=== PATIENT | female | born 1945 | race Caucasian/White ===

== ENCOUNTER 2020-07-31 20:41 | Inpatient (IN) ==
[2020-07-31] MEDS ORDERED: 0.9 % Sodium Chloride 1,000 ML IVC ONE (20:59)
[2020-07-31 21:38] LABS: Basophils % 0.3 %; Immature Granulocytes % 0.3 % (0-4); Mean Platelet Volume 9.9 fL (9.4-12.4)
[2020-07-31 21:39] LABS: White Blood Count 3.6 K/mcL (4.3-11.1)
[2020-07-31 21:40] LABS: Hemoglobin 12.7 g/dL (11.5-15.4); Immature Platelets 2.9 % (1.1-6.1); Lymphocytes # 0.4 K/mcL (0.6-4.6); Lymphocytes % 11.1 %; Mean Corpuscular HGB Conc 33.4 g/dL (31.6-35.5); Mean Corpuscular Volume 95.7 fL (83.0-100.0); Monocytes # 0.2 K/mcL (0.0-1.3); Monocytes % 5.5 %; Red Blood Count 3.97 M/mcL (3.82-4.97); Red Cell Distribution Width 12.7 % (11.5-14.5); Segmented Neutrophils % 82.8 %
[2020-07-31 22:13] LABS: Platelet Count 93 K/mcL (140-400); Platelet Estimate Slight Decrease (Normal)
[2020-07-31 22:22] LABS: Alanine Aminotransferase 43 Units/L (7-52); Albumin 3.8 g/dL (3.5-5.7); Albumin/Globulin Ratio 1.3 (1.1-2.2); Alkaline Phosphatase 53 Units/L (34-104); Aspartate Amino Transferase 68 Units/L (13-39); BUN/Creatinine Ratio 17 (6-26); Bilirubin,Indirect 0.3 mg/dL (0.0-1.0); Bilirubin,Total 0.3 mg/dL (0.3-1.0); Blood Urea Nitrogen 15 mg/dL (8-23); Calcium 8.8 mg/dL (8.6-10.3); Carbon Dioxide 22 mEq/L (23-29); Chloride 100 mEq/L (98-107); Glucose 145 mg/dL (70-105); Lipase 30 Units/L (11-82); Osmolality,Calculated 275 (280-300); Potassium 4.1 mEq/L (3.5-5.1); Sodium 131 mEq/L (136-145); Total Protein 6.8 g/dL (6.4-8.9); Troponin I 0.03 ng/mL (< 0.04); eGFR For African Americans > 60 (> 60); eGFR For Non-African Americans > 60 (> 60)
[2020-07-31 22:52] LABS: Bacteria,Urine Few per hpf (None-Few); Bilirubin,Urine Negative (Negative); Blood,Urine Negative (Negative); Clarity,Urine Turbid (Clear); Color,Urine Yellow (Yellow); Glucose,Urine (UA) Normal (Normal); Ketones,Urine 20 mg/dL (Negative); Leukocyte Esterase,Urine Large (Negative); Mucus,Urine Few per lpf (None-Few); Nitrite,Urine Negative (Negative); Protein,Urine 100 mg/dL (Neg-Trace); RBC,Urine 0-3 per hpf (0-3); Specific Gravity,Urine 1.022 (1.010-1.025); Squamous Epithelial Cell,Urine Few per hpf (None-Few); Urobilinogen,Urine Normal (Normal); WBC,Urine TNTC per hpf (0-3)
[2020-07-31] MEDS ORDERED: cefTRIAXone 1,000 MG in 0.9 % Sodium Chloride Mini Bag 100 ML IVPB ONE ×2 (22:55→22:56)
[2020-07-31] MEDS ORDERED: 0.9 % Sodium Chloride 1,000 ML IVC SCH (23:45)
[2020-07-31] MEDS ORDERED: Naloxone 0.4 MG/ML INJ IVP PRN (23:54)
[2020-07-31] MEDS ORDERED: Ondansetron 4 MG/2 ML VIAL IVP PRN (23:54)
[2020-08-01] MEDS ORDERED: Aspirin Enteric Coated 325 MG Tablet PO ONE (01:06)
[2020-08-01 01:18] LABS: Basophils % 0.3 %; Mean Corpuscular Volume 96.8 fL (83.0-100.0)
[2020-08-01 01:20] LABS: Hematocrit 33.3 % (35.3-44.9); Immature Granulocytes % 0.7 % (0-4); Immature Platelets 3.1 % (1.1-6.1); Lymphocytes # 0.3 K/mcL (0.6-4.6); Lymphocytes % 11.5 %; Mean Platelet Volume 10.5 fL (9.4-12.4); Monocytes # 0.1 K/mcL (0.0-1.3); Monocytes % 3.8 %; Neutrophils # 2.4 K/mcL (1.6-8.9); Red Blood Count 3.44 M/mcL (3.82-4.97); Red Cell Distribution Width 12.9 % (11.5-14.5); Segmented Neutrophils % 83.7 %; White Blood Count 2.9 K/mcL (4.3-11.1)
[2020-08-01 01:27] LABS: BUN/Creatinine Ratio 21 (6-26); Blood Urea Nitrogen 16 mg/dL (8-23); Carbon Dioxide 20 mEq/L (23-29); Chloride 105 mEq/L (98-107); Glucose 132 mg/dL (70-105); INR 1.1; Osmolality,Calculated 279 (280-300); Potassium 3.6 mEq/L (3.5-5.1); Prothrombin Time 12.6 Seconds (9.4-12.1); Sodium 133 mEq/L (136-145); eGFR For African Americans > 60 (> 60); eGFR For Non-African Americans > 60 (> 60)
[2020-08-01 01:29] LABS: Activated Partial Thrombo Time 26.1 Seconds (26.0-36.0)
[2020-08-01 02:25] LABS: Platelet Count 84 K/mcL (140-400)
[2020-08-01 03:21] LABS: Platelet Estimate Decreased (Normal)
[2020-08-01 06:21] LABS: Red Cell Distribution Width 12.9 % (11.5-14.5)
[2020-08-01 06:23] LABS: Hematocrit 33.4 % (35.3-44.9); Hemoglobin 10.9 g/dL (11.5-15.4); Immature Platelets 2.7 % (1.1-6.1); Mean Corpuscular HGB Conc 32.6 g/dL (31.6-35.5); Mean Corpuscular Hemoglobin 31.7 pg (28.0-33.3); Mean Corpuscular Volume 97.1 fL (83.0-100.0); Mean Platelet Volume 10.3 fL (9.4-12.4); Red Blood Count 3.44 M/mcL (3.82-4.97); White Blood Count 2.6 K/mcL (4.3-11.1)
[2020-08-01 06:31] LABS: Platelet Count 71 K/mcL (140-400)
[2020-08-01 06:41] LABS: Chol/HDL Ratio 3.5 (0-4.9)
[2020-08-01 07:11] LABS: Anisocytosis 1+ (Not Present)
[2020-08-01 07:13] LABS: Lymphocytes # 0.2 K/mcL (0.6-4.6); Neutrophils # 2.4 K/mcL (1.6-8.9)
[2020-08-01 07:14] LABS: Platelet Estimate Slight Decrease (Normal); Reactive Lymphocytes Present (Not Present); Toxic Granulation Present (Not Present); Toxic Vacuolation Present (Not Present)
[2020-08-01 08:19] LABS: Estimated Average Glucose 114 mg/dl; Hemoglobin A1C 5.6 %
[2020-08-01] MEDS ORDERED: Isovue-370 500 ML BOTTLE IVP ONE (08:40)
[2020-08-01] MEDS ORDERED: cefTRIAXone 1,000 MG in 0.9 % Sodium Chloride Mini Bag 100 ML IVPB SCH (09:00)
[2020-08-01] MEDS: 0.9 % Sodium Chloride 1,000 ML IVC SCH ×2 (10:05→17:29)
[2020-08-01 10:13] LABS: Hematocrit 34.1 % (35.3-44.9); Hemoglobin 10.9 g/dL (11.5-15.4)
[2020-08-01 10:21] LABS: % Iron Saturation 7 % (15-50); Carbamazepine (Tegretol) 5 mcg/mL (4-12); Iron 14 mcg/dL (50-170); Transferrin 144 mg/dL (203-362)
[2020-08-01 10:39] LABS: Ferritin 1394 ng/mL (10-120)
[2020-08-01] MEDS: Acetaminophen 325 MG TABLET PO PRN ×2 (10:56→18:36)
[2020-08-01] MEDS: Cefepime HCl 1,000 MG in Water for inj. (sterile) 10 ML IVP SCH ×2 (10:57→17:06)
[2020-08-01] MEDS: Gabapentin 400 MG CAPSULE PO SCH ×3 (11:36→21:47)
[2020-08-01] MEDS: Baclofen 10 MG TABLET PO PRN (11:37)
[2020-08-01] MEDS: Doxycycline 100 MG in 0.9 % Sodium Chloride Mini Bag 100 ML IVPB SCH ×2 (13:20→21:47)
[2020-08-01] MEDS: Budesonide/Formoterol 80/4.5 1 PUFF INH IH SCH ×2 (15:51→20:38)
[2020-08-01] MEDS: CarBAMazepine XR (12 hr) 100 MG TAB PO SCH (17:09)
[2020-08-02] MEDS: Cefepime HCl 1,000 MG in Water for inj. (sterile) 10 ML IVP SCH ×3 (01:11→16:39)
[2020-08-02] MEDS: 0.9 % Sodium Chloride 1,000 ML IVC SCH ×3 (01:13→22:17)
[2020-08-02 05:43] LABS: Hemoglobin 11.4 g/dL (11.5-15.4); Mean Corpuscular Hemoglobin 31.8 pg (28.0-33.3); Mean Corpuscular Volume 96.9 fL (83.0-100.0); Mean Platelet Volume 11.1 fL (9.4-12.4); Red Cell Distribution Width 12.9 % (11.5-14.5)
[2020-08-02 05:45] LABS: Hematocrit 34.8 % (35.3-44.9); Immature Platelets 8.8 % (1.1-6.1); Mean Corpuscular HGB Conc 32.8 g/dL (31.6-35.5); Monocytes # 0.1 K/mcL (0.0-1.3); Red Blood Count 3.59 M/mcL (3.82-4.97); White Blood Count 2.2 K/mcL (4.3-11.1)
[2020-08-02 05:54] LABS: Platelet Count 51 K/mcL (140-400)
[2020-08-02] MEDS: Acetaminophen 325 MG TABLET PO PRN (06:00)
[2020-08-02] MEDS: CarBAMazepine XR (12 hr) 100 MG TAB PO SCH ×2 (06:01→16:39)
[2020-08-02 06:09] LABS: Lymphocytes # 0.5 K/mcL (0.6-4.6); Neutrophils # 1.5 K/mcL (1.6-8.9); Platelet Estimate Decreased (Normal); Reactive Lymphocytes Present (Not Present); Toxic Granulation Present (Not Present)
[2020-08-02] MEDS: Budesonide/Formoterol 80/4.5 1 PUFF INH IH SCH ×2 (07:21→20:27)
[2020-08-02] MEDS: Doxycycline 100 MG in 0.9 % Sodium Chloride Mini Bag 100 ML IVPB SCH ×2 (07:35→21:46)
[2020-08-02] MEDS: Gabapentin 400 MG CAPSULE PO SCH ×2 (07:36→08:05)
[2020-08-02 07:42] LABS: Alanine Aminotransferase 121 Units/L (7-52); Albumin 3.3 g/dL (3.5-5.7); Albumin/Globulin Ratio 1.3 (1.1-2.2); Alkaline Phosphatase 65 Units/L (34-104); Aspartate Amino Transferase 210 Units/L (13-39); BUN/Creatinine Ratio 14 (6-26); Bilirubin,Direct 0.1 mg/dL (0.0-0.2); Bilirubin,Indirect 0.3 mg/dL (0.0-1.0); Bilirubin,Total 0.4 mg/dL (0.3-1.0); Blood Urea Nitrogen 12 mg/dL (8-23); Calcium 7.5 mg/dL (8.6-10.3); Carbon Dioxide 22 mEq/L (23-29); Chloride 104 mEq/L (98-107); Globulin 2.6 g/dL (2.4-3.5); Glucose 124 mg/dL (70-105); Magnesium 1.7 mg/dL (1.6-2.6); Osmolality,Calculated 277 (280-300); Phosphorous 1.5 mg/dL (2.7-4.5); Potassium 3.4 mEq/L (3.5-5.1); Sodium 133 mEq/L (136-145); Total Protein 5.9 g/dL (6.4-8.9); eGFR For African Americans > 60 (> 60); eGFR For Non-African Americans > 60 (> 60)
[2020-08-02] MEDS: Baclofen 10 MG TABLET PO PRN (08:06)
[2020-08-02] MEDS ORDERED: Calcium Gluconate 1gm/50mL 1 GM/50 ML BAG IVPB ONE (08:34)
[2020-08-02] MEDS: *HR* OxyCODONE Immed Rel 5 MG TABLET PO PRN (10:13)
[2020-08-02] MEDS: Gabapentin 300 MG CAPSULE PO SCH ×2 (14:23→22:01)
[2020-08-02] MEDS ORDERED: Ketorolac 15 MG/ML VIAL IVP ONE (14:32)
[2020-08-03] MEDS: Acetaminophen 325 MG TABLET PO PRN ×3 (00:11→20:25)
[2020-08-03] MEDS: Cefepime HCl 1,000 MG in Water for inj. (sterile) 10 ML IVP SCH ×2 (00:13→10:10)
[2020-08-03] MEDS: CarBAMazepine XR (12 hr) 100 MG TAB PO SCH ×2 (05:32→18:39)
[2020-08-03 07:05] LABS: Immature Granulocytes % 0.4 % (0-4); Red Cell Distribution Width 13.2 % (11.5-14.5)
[2020-08-03 07:07] LABS: Basophils % 1.1 %; Hematocrit 32.6 % (35.3-44.9); Hemoglobin 10.4 g/dL (11.5-15.4); Immature Platelets 9.9 % (1.1-6.1); Lymphocytes # 1.4 K/mcL (0.6-4.6); Lymphocytes % 52.2 %; Mean Corpuscular HGB Conc 31.9 g/dL (31.6-35.5); Mean Corpuscular Volume 100.3 fL (83.0-100.0); Mean Platelet Volume 12.2 fL (9.4-12.4); Monocytes # 0.1 K/mcL (0.0-1.3); Monocytes % 3.7 %; Neutrophils # 1.2 K/mcL (1.6-8.9); Platelet Count 48 K/mcL (140-400); Red Blood Count 3.25 M/mcL (3.82-4.97); Segmented Neutrophils % 42.6 %; White Blood Count 2.7 K/mcL (4.3-11.1)
[2020-08-03 07:27] LABS: Magnesium 1.8 mg/dL (1.6-2.6); Phosphorous 2.3 mg/dL (2.7-4.5)
[2020-08-03 07:28] LABS: Alanine Aminotransferase 97 Units/L (7-52); Albumin/Globulin Ratio 1.4 (1.1-2.2); Alkaline Phosphatase 67 Units/L (34-104); Aspartate Amino Transferase 142 Units/L (13-39); BUN/Creatinine Ratio 15 (6-26); Bilirubin,Total 0.3 mg/dL (0.3-1.0); Blood Urea Nitrogen 11 mg/dL (8-23); Calcium 7.6 mg/dL (8.6-10.3); Carbon Dioxide 21 mEq/L (23-29); Chloride 112 mEq/L (98-107); Globulin 2.1 g/dL (2.4-3.5); Glucose 98 mg/dL (70-105); Osmolality,Calculated 285 (280-300); Potassium 4.1 mEq/L (3.5-5.1); Sodium 138 mEq/L (136-145); Total Protein 5.1 g/dL (6.4-8.9); eGFR For African Americans > 60 (> 60); eGFR For Non-African Americans > 60 (> 60)
[2020-08-03 07:50] LABS: Platelet Estimate Decreased (Normal)
[2020-08-03] MEDS: Budesonide/Formoterol 80/4.5 1 PUFF INH IH SCH ×2 (09:28→22:40)
[2020-08-03] MEDS ORDERED: Calcium Gluconate 1gm/50mL 1 GM/50 ML BAG IVPB ONE (09:33)
[2020-08-03] MEDS: Doxycycline 100 MG in 0.9 % Sodium Chloride Mini Bag 100 ML IVPB SCH ×2 (09:34→20:26)
[2020-08-03] MEDS: 0.9 % Sodium Chloride 1,000 ML IVC SCH (09:35)
[2020-08-03] MEDS: Gabapentin 300 MG CAPSULE PO SCH ×3 (09:35→20:25)
[2020-08-03] MEDS: Melatonin 3 MG TABLET PO PRN (20:29)
[2020-08-04] MEDS: Acetaminophen 325 MG TABLET PO PRN ×2 (02:37→20:22)
[2020-08-04 03:21] LABS: Mean Corpuscular Volume 97.5 fL (83.0-100.0)
[2020-08-04 03:23] LABS: Hematocrit 30.6 % (35.3-44.9); Hemoglobin 9.9 g/dL (11.5-15.4); Immature Platelets 9.3 % (1.1-6.1); Lymphocytes # 2.4 K/mcL (0.6-4.6); Mean Corpuscular HGB Conc 32.4 g/dL (31.6-35.5); Mean Corpuscular Hemoglobin 31.5 pg (28.0-33.3); Mean Platelet Volume 12.3 fL (9.4-12.4); Red Blood Count 3.14 M/mcL (3.82-4.97); Red Cell Distribution Width 13.3 % (11.5-14.5); White Blood Count 4.5 K/mcL (4.3-11.1)
[2020-08-04 03:24] LABS: Platelet Count 55 K/mcL (140-400)
[2020-08-04 03:43] LABS: BUN/Creatinine Ratio 16 (6-26); Blood Urea Nitrogen 10 mg/dL (8-23); Calcium 7.7 mg/dL (8.6-10.3); Carbon Dioxide 24 mEq/L (23-29); Chloride 107 mEq/L (98-107); Glucose 120 mg/dL (70-105); Magnesium 1.6 mg/dL (1.6-2.6); Osmolality,Calculated 282 (280-300); Phosphorous 2.9 mg/dL (2.7-4.5); Sodium 136 mEq/L (136-145); eGFR For African Americans > 60 (> 60); eGFR For Non-African Americans > 60 (> 60)
[2020-08-04 03:44] LABS: Anisocytosis 1+ (Not Present); Monocytes # 0.1 K/mcL (0.0-1.3); Neutrophils # 1.9 K/mcL (1.6-8.9); Platelet Estimate Decreased (Normal)
[2020-08-04 03:45] LABS: Reactive Lymphocytes Present (Not Present); Smudge Cells Present (Not Present)
[2020-08-04] MEDS: CarBAMazepine XR (12 hr) 100 MG TAB PO SCH ×2 (05:08→17:53)
[2020-08-04 08:32] LABS: Anaplasma phagocytophilum IgG <1:80 (<1:80); Anaplasma phagocytophilum IgM < 1:16 (< 1:16)
[2020-08-04] MEDS: Gabapentin 300 MG CAPSULE PO SCH ×3 (08:59→20:10)
[2020-08-04] MEDS: *HR* OxyCODONE Immed Rel 5 MG TABLET PO PRN (09:02)
[2020-08-04] MEDS: Doxycycline 100 MG in 0.9 % Sodium Chloride Mini Bag 100 ML IVPB SCH ×2 (09:03→20:08)
[2020-08-04] MEDS: Budesonide/Formoterol 80/4.5 1 PUFF INH IH SCH ×2 (10:49→19:43)
[2020-08-04 11:09] LABS: Carbamazepine (Tegretol) 6 mcg/mL (4-12)
[2020-08-04] MEDS: Melatonin 3 MG TABLET PO PRN (20:10)
[2020-08-05] MEDS: CarBAMazepine XR (12 hr) 100 MG TAB PO SCH (05:05)
[2020-08-05 05:42] LABS: Red Cell Distribution Width 13.2 % (11.5-14.5)
[2020-08-05 05:44] LABS: Eosinophils # 0.1 K/mcL (0.0-0.6); Hemoglobin 10.2 g/dL (11.5-15.4); Immature Platelets 9.3 % (1.1-6.1); Mean Corpuscular HGB Conc 31.9 g/dL (31.6-35.5); Mean Corpuscular Hemoglobin 31.2 pg (28.0-33.3); Mean Corpuscular Volume 97.9 fL (83.0-100.0); Mean Platelet Volume 11.3 fL (9.4-12.4); Red Blood Count 3.27 M/mcL (3.82-4.97); White Blood Count 5.6 K/mcL (4.3-11.1)
[2020-08-05 05:48] LABS: Platelet Count 79 K/mcL (140-400)
[2020-08-05 06:00] LABS: BUN/Creatinine Ratio 18 (6-26); Blood Urea Nitrogen 12 mg/dL (8-23); Calcium 8.7 mg/dL (8.6-10.3); Carbon Dioxide 27 mEq/L (23-29); Chloride 108 mEq/L (98-107); Glucose 110 mg/dL (70-105); Magnesium 1.8 mg/dL (1.6-2.6); Osmolality,Calculated 292 (280-300); Phosphorous 3.7 mg/dL (2.7-4.5); Potassium 4.3 mEq/L (3.5-5.1); Sodium 141 mEq/L (136-145); eGFR For African Americans > 60 (> 60); eGFR For Non-African Americans > 60 (> 60)
[2020-08-05 06:18] LABS: Lymphocytes # 2.8 K/mcL (0.6-4.6); Monocytes # 0.2 K/mcL (0.0-1.3); Neutrophils # 2.1 K/mcL (1.6-8.9); Platelet Estimate Decreased (Normal); Reactive Lymphocytes Present (Not Present)
[2020-08-05] MEDS: Doxycycline 100 MG in 0.9 % Sodium Chloride Mini Bag 100 ML IVPB SCH (09:10)
[2020-08-05] MEDS: Gabapentin 300 MG CAPSULE PO SCH (09:10)
[2020-08-05] MEDS ORDERED: Doxycycline 100 MG CAPSULE PO ONE (09:43)
[2020-08-05] MEDS: Budesonide/Formoterol 80/4.5 1 PUFF INH IH SCH (10:36)
[2020-08-05 11:03] VITALS: BP 92/55
[2020-08-07 08:42] LABS: Alpha 2 Globulin (PEP) 0.83 g/dL (0.48-1.05); Beta Globulin (PEP) 0.57 g/dL (0.48-1.10)
[2020-08-07 10:27] LABS: IFE Reflexed NOT DONE
== END 2020-08-05 11:47 | disposition home or self-care (01) | DRG 871 ==
LOC: 3BNU 20:41 → EMEROOARM 20:41 → SUATTDRO 23:15 → 3BNU 23:52
PROVIDERS: ADMIT Student in an Organized Health Care Education/Training Program; ATTEND Internal Medicine